=== PATIENT | male | born 1990 | race American Indian/Alaskan Native ===

== ENCOUNTER 2018-10-28 12:49 | Emergency (ER) | payer OTHER ==
--- NOTE | 2018-10-28 13:01 | Emergency Department Report ---
Chief Complaint: Abdominal Pain Stated Complaint: RT SIDED PAIN Time Seen by Provider: 10/28/18 12:59 - HPI History of Present Illness: pt presents with right sided abd pain this morning no urinary sx no N/V, no fever had before but resolved on its own MSE screening note: Focused history and physical exam performed. Due to findings the following was ordered: labs, UA ED Disposition for MSE Condition: Stable
[2018-10-28 13:02] VITALS: BP 135/73
[2018-10-28] MEDS ORDERED: NACL 0.9% 1000 ML 1,000 ML IV ONE (13:20)
[2018-10-28] MEDS ORDERED: TORADOL IV ONE (13:20)
[2018-10-28 13:51] LABS: Basophils % (Auto) 0.7 % (0.0-1.8); Eosinophils # (Auto) 0.3 K/mm3 (0.0-0.4); Eosinophils % (Auto) 3.9 % (0.0-4.3); Hematocrit 39.7 % (35.5-45.6); Hemoglobin 13.4 gm/dl (11.8-15.2); Lymphocytes # (Auto) 3.1 K/mm3 (1.2-5.4); Lymphocytes % (Auto) 47.3 % (13.4-35.0); Mean Corpuscular HGB Conc 34 % (32-34); Mean Corpuscular Volume 73 fl (84-94); Monocytes # (Auto) 0.7 K/mm3 (0.0-0.8); Platelet Count 200 K/mm3 (140-440); Red Blood Count 5.47 M/mm3 (3.65-5.03); Red Cell Distribution Width 15.8 % (13.2-15.2)
--- NOTE | 2018-10-28 14:09 | Emergency Department Report ---
ED Abdominal Pain HPI - General Chief Complaint: Abdominal Pain Stated Complaint: RT SIDED PAIN Time Seen by Provider: 10/28/18 12:59 Source: patient Mode of arrival: Ambulatory Limitations: No Limitations - History of Present Illness Initial Comments: This is a 27-year-old male nontoxic, well nourished in appearance, no acute signs of distress presents to the ED with c/o of right lower abdominal pain 1 day. Patient denies any nausea or vomiting. Patient describes abdominal pain as cramping and aching with level of 8/10. Patient denies chest pain, short of breath, fever, chills, headache, stiff neck, numbness or tingling. Patient denies any radiation of pain. Patient denies any diarrhea or constipation. Patient denies any recent travels. Patient denies any allergies or PMH. MD Complaint: abdominal pain -: days(s) (1) Location: RLQ Radiation: none Migration to: no migration Severity: mild Severity scale (0 -10): 8 Quality: cramping, aching Consistency: constant Improves With: nothing Worsens With: nothing Associated Symptoms: denies: nausea, vomiting, diarrhea, fever, chills, constipation, dysuria, hematemesis, hematochezia, melena, hematuria, anorexia, syncope - Related Data Previous Rx's Medication Instructions Recorded Last Taken Type Ketorolac [Toradol] 10 mg PO Q6H PRN #12 tablet 10/28/18 Unknown Rx Tamsulosin [Flomax] 0.4 mg PO QDAY #5 cap 10/28/18 Unknown Rx Allergies Allergy/AdvReac Type Severity Reaction Status Date / Time No Known Allergies Allergy Unverified 10/28/18 12:53 ED Review of Systems ROS: Stated complaint: RT SIDED PAIN Other details as noted in HPI Constitutional: denies: chills, fever Eyes: denies: eye pain, eye discharge, vision change ENT: denies: ear pain, throat pain Respiratory: denies: cough, shortness of breath, wheezing Cardiovascular: denies: chest pain, palpitations Endocrine: no symptoms reported Gastrointestinal: abdominal pain. denies: nausea, vomiting, diarrhea, constipa tion Genitourinary: denies: urgency, dysuria Musculoskeletal: denies: back pain, joint swelling, arthralgia Skin: denies: rash, lesions Neurological: denies: headache, weakness, paresthesias Psychiatric: denies: anxiety, depression Hematological/Lymphatic: denies: easy bleeding, easy bruising ED Past Medical Hx - Past Medical History Previous Medical History?: No - Surgical History Past Surgical History?: Yes Additional Surgical History: right knee - Social History Smoking Status: Never Smoker Substance Use Type: None - Medications Home Medications: Home Medications Medication Instructions Recorded Confirmed Last Taken Type Ketorolac [Toradol] 10 mg PO Q6H PRN #12 tablet 10/28/18 Unknown Rx Tamsulosin [Flomax] 0.4 mg PO QDAY #5 cap 10/28/18 Unknown Rx ED Physical Exam - General Limitations: No Limitations General appearance: alert, in no apparent distress - Head Head exam: Present: atraumatic, normocephalic - Eye Eye exam: Present: normal appearance - Neck Neck exam: Present: normal inspection, full ROM. Absent: tenderness, meningismus, lymphadenopathy - Respiratory Respiratory exam: Present: normal lung sounds bilaterally. Absent: respiratory distress, wheezes, rales, rhonchi, stridor, chest wall tenderness, accessory muscle use, decreased breath sounds, prolonged expiratory - Cardiovascular Cardiovascular Exam: Present: regular rate, normal rhythm, normal heart sounds. Absent: irregular rhythm, systolic murmur, diastolic murmur, rubs, gallop - GI/Abdominal GI/Abdominal exam: Present: soft, tenderness (RLQ), normal bowel sounds. Absent: distended, guarding, rebound, rigid, diminished bowel sounds - Expanded GI/Abdominal Exam Expanded GI/Abdominal exam: Absent: psoas sign, Mckeon's sign, Rovsing's sign, tenderness at Mcburney's Point, ascites - Rectal Rectal exam: Present: deferred - Extremities Exam Extremities exam: Present: normal inspection, full ROM - Back Exam Back exam: Present: normal inspection, full ROM. Absent: tenderness, CVA tenderness (R), CVA tenderness (L), muscle spasm, paraspinal tenderness, vertebral tenderness, rash noted - Neurological Exam Neurological exam: Present: alert, oriented X3 - Psychiatric Psychiatric exam: Present: normal affect, normal mood - Skin Skin exam: Present: warm, dry, intact, normal color. Absent: rash ED Course Vital Signs 10/28/18 13:00 Temperature 97.9 F Pulse Rate 98 H Respiratory 16 Rate Blood Pressure 135/73 O2 Sat by Pulse 99 Oximetry - Reevaluation(s) Reevaluation #1: 10/28/18 14:08 Patient is speaking in full sentences with no signs of distress noted. ED Medical Decision Making - Lab Data Result diagrams: 10/28/18 13:12 10/28/18 13:12 - Medical Decision Making This is a 27-year-old male that presents with abdominal pain. Patient is stable and was examined by me. There is slight abdominal tenderness. Labs obtained. UA obtained. CT with contrast of abdomen obtained and dictated by the radiologist. Patient is notified of the report with no questions noted by the patient. Vital signs are stable prior to discharge. Patient received medical treatment in the ED which patient stated symptoms has resolved and subsided. A by mouth challenge has been obtained and patient tolerated well with no nausea vomiting. Patient was notified of strict precautions of appendicitis symptoms and to return to the ED if symptoms occurs as soon as possible. Patient was also instructed to Follow-up with a primary care doctor in 3-5 days or if symptoms worsen and continue return to emergency room as soon as possible. At time of discharge, the patient does not seem toxic or ill in appearance. No acute signs of distress noted. Patient agrees to discharge treatment plan of care. No further questions noted by the patient. Critical care attestation.: If time is entered above; I have spent that time in minutes in the direct care of this critically ill patient, excluding procedure time. ED Disposition Clinical Impression: Right kidney stone Disposition: DC-01 TO HOME OR SELFCARE Is pt being admited?: No Does the pt Need Aspirin: No Condition: Stable Instructions: Kidney Stones (ED), Renal Colic (ED), Ondansetron (By mouth), Tamsulosin (By mouth), Ketorolac (By mouth) Additional Instructions: Follow-up with a primary care doctor in 3-5 days or if symptoms worsen and continue return to emergency room as soon as possible. Prescriptions: Tamsulosin [Flomax] 0.4 mg PO QDAY #5 cap Ketorolac [Toradol] 10 mg PO Q6H PRN #12 tablet PRN Reason: Pain Referrals: [facility] [place] MD MING [Primary Care Provider] - 3-5 Days PRIMARY CAREMD [Referring] - 3-5 Days SUELLEN GUILLAUME MD [Staff Physician] - 3-5 Days [facility] [Outside] - 3-5 Days [facility] [Outside] - 3-5 Days Forms: Work/School Release Form(ED)
[2018-10-28 14:15] LABS: Alanine Aminotransferase 36 units/L (7-56); Albumin 4.2 g/dL (3.9-5); BUN/Creatinine Ratio 11; Blood Urea Nitrogen 11 mg/dL (9-20); Hemolysis Index 11
[2018-10-28 14:16] LABS: Bilirubin,Direct < 0.2 mg/dL (0-0.2)
[2018-10-28 14:18] LABS: Bilirubin,Urine NEG (Negative); Blood,Urine LG (Negative); Color,Urine Yellow (Yellow); Mucus,Urine FEW /HPF; Protein,Urine <15 mg/dL mg/dL (Negative)
[2018-10-28 14:20] LABS: RBC,Urine > 182.0 /HPF (0.0-6.0)
--- NOTE | 2018-10-28 15:28 | Cat Scan Report ---
CT scan of abdomen and pelvis with IV contrast: History: Abdominal pain. Findings: Normal liver spleen pancreas and gallbladder. Normal adrenals. There is a 3 mm nonobstructing calculus noted at the right pelviureteric junction. There is 2 mm calculus noted within the right kidney. 2 mm calculus within the left kidney. Distended uterus appears normal. Normal bladder. No free intraperitoneal fluid or air. No evidence of adenopathy. No evidence of appendicitis or diverticulitis. No significant bowel distention. Minimal fluid in the small bowel. Impression: Small calculus right pelvi-ureteric junction .
== END 2018-10-28 16:16 | disposition home or self-care (01) ==
LOC: ED 12:49
DX: N20.0 Calculus of kidney (principal)
CPT/HCPCS: 36415; 74177; 80048; 80076; 81001; 83690; 85025; 96374; 99284; J1885; J7030; Q9967

== ENCOUNTER 2019-04-26 16:51 | Emergency (ER) | payer SELFPAY ==
--- NOTE | 2019-04-26 17:23 | Event Note ---
ED Screening Note Date of service: 04/26/19 Time: 17:19 ED Screening Note: This is a 28 y.o. M. that presents to the ER with fatigue, headache, nausea, chills, and fever since last night. Taken Tylenol. This initial assessment/diagnostic orders/clinical plan/treatment(s) is/are subject to change based on patients health status, clinical progression and re- assessment by fellow clinical providers in the ED. Further treatment and workup at subsequent clinical providers discretion. Patient/guardian urged not to elope from the ED as their condition may be serious if not clinically assessed and managed. Initial orders include: Labs
[2019-04-26 18:07] LABS: Basophils % (Auto) 0.5 % (0.0-1.8); Eosinophils % (Auto) 0.1 % (0.0-4.3); Hematocrit 41.1 % (35.5-45.6); Hemoglobin 13.4 gm/dl (11.8-15.2); Lymphocytes # (Auto) 0.8 K/mm3 (1.2-5.4); Lymphocytes % (Auto) 9.5 % (13.4-35.0); Mean Corpuscular HGB Conc 33 % (32-34); Mean Corpuscular Volume 73 fl (84-94); Monocytes # (Auto) 0.8 K/mm3 (0.0-0.8); Monocytes % (Auto) 9.1 % (0.0-7.3); Platelet Count 160 K/mm3 (140-440); Red Blood Count 5.63 M/mm3 (3.65-5.03); Red Cell Distribution Width 15.5 % (13.2-15.2)
[2019-04-26 18:31] LABS: Alanine Aminotransferase 17 units/L (7-56); Albumin 4.4 g/dL (3.9-5); BUN/Creatinine Ratio 10; Blood Urea Nitrogen 10 mg/dL (9-20); Hemolysis Index 21
[2019-04-26] MEDS ORDERED: ONDANSETRON 4 MG/2 ML INJ IV STA (20:39)
[2019-04-26] MEDS ORDERED: SODIUM CHLORIDE 0.9% 1000 ML 1,000 ML IV ONE (20:39)
[2019-04-26] MEDS ORDERED: KETOROLAC 30 MG/1 ML INJ IV STA (20:39)
--- NOTE | 2019-04-26 20:51 | Emergency Department Report ---
ED General Adult HPI - General Chief complaint: Headache Stated complaint: HEADACHE/NAUSEA/CHILLS Time Seen by Provider: 04/26/19 17:19 Source: patient Mode of arrival: Ambulatory Limitations: No Limitations - History of Present Illness Initial comments: 28-year-old -[place] male presents to emergency department complaining of a sudden onset of coryza, chills and fever sensation. He denies any foreign Travel, no sick contacts. Reports no diarrhea or vomiting but does report having some headaches and nausea. No neck pain or neck stiffness -: Sudden Radiation: non-radiation Quality: aching Consistency: constant Improves with: none Worsens with: none Associated Symptoms: fever/chills, headaches, loss of appetite, malaise, weakness Treatments Prior to Arrival: none - Related Data Previous Rx's Medication Instructions Recorded Last Taken Type Ketorolac [Toradol] 10 mg PO Q6H PRN #12 tablet 10/28/18 Unknown Rx Tamsulosin [Flomax] 0.4 mg PO QDAY #5 cap 10/28/18 Unknown Rx Ketorolac [Toradol] 10 mg PO Q6H PRN #15 tablet 04/26/19 Unknown Rx guaiFENesin/CODEINE [Robitussin AC] 5 ml PO Q6H PRN #120 ml 04/26/19 Unknown Rx Allergies Allergy/AdvReac Type Severity Reaction Status Date / Time No Known Allergies Allergy Verified 04/26/19 21:28 ED Review of Systems ROS: Stated complaint: HEADACHE/NAUSEA/CHILLS Other details as noted in HPI Comment: All other systems reviewed and negative ED Past Medical Hx - Past Medical History Previous Medical History?: No - Surgical History Past Surgical History?: Yes Additional Surgical History: right knee - Social History Smoking Status: Never Smoker Substance Use Type: None - Medications Home Medications: Home Medications Medication Instructions Recorded Confirmed Last Taken Type Ketorolac [Toradol] 10 mg PO Q6H PRN #12 tablet 10/28/18 Unknown Rx Tamsulosin [Flomax] 0.4 mg PO QDAY #5 cap 10/28/18 Unknown Rx Ketorolac [Toradol] 10 mg PO Q6H PRN #15 tablet 04/26/19 Unknown Rx guaiFENesin/CODEINE [Robitussin AC] 5 ml PO Q6H PRN #120 ml 04/26/19 Unknown Rx ED Physical Exam - General Limitations: No Limitations General appearance: alert, in no apparent distress - Head Head exam: Present: atraumatic, normocephalic - Eye Eye exam: Present: normal appearance - ENT ENT exam: Present: mucous membranes moist - Neck Neck exam: Present: normal inspection - Respiratory Respiratory exam: Present: normal lung sounds bilaterally. Absent: respiratory distress - Cardiovascular Cardiovascular Exam: Present: regular rate, normal rhythm. Absent: systolic murmur, diastolic murmur, rubs, gallop - GI/Abdominal GI/Abdominal exam: Present: soft, normal bowel sounds - Rectal Rectal exam: Present: deferred - Extremities Exam Extremities exam: Present: normal inspection - Back Exam Back exam: Present: normal inspection - Neurological Exam Neurological exam: Present: alert, oriented X3 - Psychiatric Psychiatric exam: Present: normal affect, normal mood - Skin Skin exam: Present: warm, dry, intact, normal color. Absent: rash ED Course Vital Signs 04/26/19 04/26/19 04/26/19 17:20 21:17 21:19 Temperature 103.0 F H 103.0 F H Pulse Rate 104 H 110 H Respiratory 20 20 20 Rate Blood Pressure 127/70 Blood Pressure 134/72 [Right] O2 Sat by Pulse 100 100 Oximetry 04/26/19 22:24 Temperature 100.3 F H Pulse Rate 98 H Respiratory 20 Rate Blood Pressure Blood Pressure 132/68 [Right] O2 Sat by Pulse 99 Oximetry ED Medical Decision Making - Lab Data Result diagrams: 04/26/19 17:33 04/26/19 17:33 - Medical Decision Making 28-year-old -[place] male in no respiratory distress, complaining of right sudden onset of symptoms, normal CBC and chemistry. Findings suggest more of a viral type syndrome coupled with some early dehydration. He was hydrated with IV fluids and pain treated accordingly. Plan is to have him to follow with his primary care provider and N1 to 2 days and treat this. The symptoms was viral syndrome. His temperature improved from 103-100.3 and heart rate improved from the 115 down to 98 after the treatment. Critical care attestation.: If time is entered above; I have spent that time in minutes in the direct care of this critically ill patient, excluding procedure time. ED Disposition Clinical Impression: Viral syndrome Disposition: DC-01 TO HOME OR SELFCARE Is pt being admited?: No Does the pt Need Aspirin: No Condition: Stable Instructions: Acute Nausea and Vomiting (ED), Viral Syndrome (ED) Prescriptions: guaiFENesin/CODEINE [Robitussin AC] 5 ml PO Q6H PRN #120 ml PRN Reason: Cough Ketorolac [Toradol] 10 mg PO Q6H PRN #15 tablet PRN Reason: Pain Referrals: PRIMARY CARE,MD [Primary Care Provider] - 3-5 Days
[2019-04-26] MEDS ORDERED: ACETAMINOPHEN 325 MG/10.15 ML ORAL LIQD UNIT DOSE PO ONE (21:28)
[2019-04-26] MEDS ORDERED: ACETAMINOPHEN 325 MG/10.15 ML ORAL LIQD UNIT DOSE ONE (21:29)
[2019-04-26 22:25] VITALS: BP 132/68
== END 2019-04-26 23:40 | disposition home or self-care (01) ==
LOC: ED 16:51
DX: B34.9 Viral infection, unspecified (principal)
CPT/HCPCS: 36415; 80053; 85025; 96361; 96374; 96375; 99283; J1885; J2405; J7030